=== PATIENT | female | born 1990 | race Caucasian/White ===

== ENCOUNTER 2017-04-19 05:20 | Emergency (ER) | payer MEDICAID ==
--- NOTE | 2017-04-19 05:25 | EDPHY ---
H & P HPI/ROS: HPI CHIEF COMPLAINT: Left ankle pain. HISTORY OF PRESENT ILLNESS: This patient very pleasant 27-year-old female, she is otherwise healthy but does have a history of diabetes, she presents emergency room with left ankle pain. She reports that she was in the kitchen last night rolled her left ankle. She now has tenderness to the left lateral malleolus. And some mild soft tissue swelling inferior to left lateral malleolus. She has good distal pulse. Good cap refill. Warm extremity. She denies any knee pain or upper thigh pain. She states that hurts when she bears weight on it. Past Medical History: Denies significant medical history except for diabetes Past Surgical History: No recent surgery Social History: Lives locally, denies daily use of drugs alcohol tobacco. Family History: Noncontributory ROS REVIEW OF SYSTEMS: A comprehensive 10 point review of systems is otherwise negative aside from elements mentioned in the history of present illness. Exam Constitutional appears well nontoxic triage nursing summary reviewed, vital signs reviewed, awake/alert. Eyes normal conjunctivae and sclera, EOMI, PERRLA. HENT normal inspection, atraumatic, moist mucus membranes, no epistaxis, neck supple/ no meningismus, no raccoon eyes. Respiratory clear to auscultation bilaterally, normal breath sounds, no respiratory distress, no wheezing. Cardiovascular rate normal, regular rhythm, no murmur, no edema, distal pulses normal. Gastrointestinal soft, non-tender, no rebound, no guarding, normal bowel sounds, no distension, no pulsatile mass. Genitourinary no CVA tenderness. Musculoskeletal no midline vertebral tenderness, full range of motion, no calf swelling, no tenderness of extremities, no meningismus, good pulses, neurovascularly intact. Left lower extremity: This is neurovascularly intact. Good distal pulse. Good cap refill. Tender palpation over the left lateral malleolus some swelling noted inferior left lateral malleolus. Compartments are soft. No calf tenderness or calf swelling. Good distal pulse. Good cap refill. Sensation intact. Skin pink, warm, & dry, no rash, skin atraumatic. Neurologic awake, alert and oriented x 3, AAOx3, moves all 4 extremities equally, motor intact, sensory intact, CN II-XII intact, normal cerebellar, normal vision, normal speech. Psychiatric normal mood/affect. Heme/Lymph/Immune no lymphadenopathy. Differential Diagnosis: Includes but is not limited to in a particular order acute left ankle sprain, tendinitis, ankle fracture, avulsion fracture, soft tissue injury, nerve injury, plantar fasciitis. Medical Decision Making: Plan for this patient ibuprofen 800 mg for pain control, x-ray left ankle. Re-evaluation: X-ray of the left ankle reviewed by myself: No evidence of acute fracture malalignment. Patient placed in a walking boot for comfort, crutches as needed for support. Ibuprofen for pain control. Recommend follow up with Podiatry or her primary care doctor. 0551: X-ray of the left ankle is been reviewed. Interpreted by myself. I do not appreciate any significant malalignment or evidence of fracture. Recommend crutches for weight-bearing, recommend walking boot for comfort. Additionally recommend ice and ibuprofen anti-inflammatory pain medicine. If she continues to have pain I do recommend she follows up with Podiatry or her primary care doctor she understands. Source: Patient - Medical/Surgical History Hx Asthma: No Hx Chronic Respiratory Disease: No Hx Diabetes: Yes Hx Cardiac Disease: No Hx Renal Disease: No Hx Cirrhosis: No Hx Alcoholism: No Hx HIV/AIDS: No Hx Splenectomy or Spleen Trauma: No Other PMH: IDDM - Social History Smoking Status: Former smoker Constitutional: Initial Vital Signs Temperature (C) 37.1 C 04/19/17 05:21 Heart Rate 89 04/19/17 05:21 Respiratory Rate 16 04/19/17 05:21 Blood Pressure 133/83 H 04/19/17 05:21 O2 Sat (%) 97 04/19/17 05:21 O2 Delivery Mode Room Air Allergies/Adverse Reactions: bacitracin Allergy (Verified 04/19/17 05:30) Home Medications: Medication Instructions Recorded Insulin Pump Syringe, 3 ml 06/14/15 MULTI [id number] 0.25 MG 06/14/15 RX: Ibuprofen [Motrin (*)] 800 mg PO Q6-8PRN #10 tab 04/19/17 Xanax 04/19/17 Medical Decision Making - Data Points Medications Given: Discontinued Medications Ibuprofen (Motrin) 800 mg PO EDNOW ONE Stop: 04/19/17 05:39 Last Admin: 04/19/17 05:43 Dose: 800 mg Departure - Departure Disposition: Home, Routine, Self-Care Clinical Impression: Ankle sprain Qualifiers: Encounter type: initial encounter Involved ligament of ankle: unspecified ligament Laterality: left Qualified Code(s): S93.402A - Sprain of unspecified ligament of left ankle, initial encounter Condition: Good Instructions: Ankle Sprain (ED) Additional Instructions: 1. I recommend that you ice her ankle. 2. Take anti-inflammatory pain medicine like Tylenol Motrin for pain control. 3. Follow up with her primary care doctor or retail sales associate. 4. Crutches to help support her weight. 5. Walking boot for comfort. Referrals: [facility] [Primary Care Provider] - As per Instructions Cristy Abraham DPM [Doctor of Podiatric Medicine] - As per Instructions Prescriptions: RX: Ibuprofen [Motrin (*)] 800 mg PO Q6-8PRN #10 tab
[2017-04-19 05:29] VITALS: RESP 16; TEMP 98.8
[2017-04-19] MEDS ORDERED: IBUPROFEN 800 MG TAB PO ONE (05:38)
[2017-04-19 06:17] VITALS: BP 124/76; PULSE 80; O2SAT 98
== END 2017-04-19 06:12 | disposition home or self-care (01) ==
DX: S93.402A Sprain of unspecified ligament of left ankle, initial encounter (principal); E11.9 Type 2 diabetes mellitus without complications; Z87.891 Personal history of nicotine dependence; Z79.4 Long term (current) use of insulin; X58.XXXA Exposure to other specified factors, initial encounter; Y92.000 Kitchen of unspecified non-institutional (private) residence as the place of occurrence of the external cause; Y99.8 Other external cause status; Y93.89 Activity, other specified
CPT/HCPCS: L4386

== ENCOUNTER → 2017-06-02 | Outpatient (CLI) | payer MEDICAID ==
[~2017-06-02] MED LIST: GADOBUTROL 10 ML VIAL IVP ONE
== END ==
LOC: FIMAGING 12:21
PROVIDERS: ATTEND Family Medicine
DX: E23.7 Disorder of pituitary gland, unspecified (principal)
CPT/HCPCS: A9585

== ENCOUNTER → 2017-07-16 | Outpatient (CLI) | payer MEDICAID | LOC: FIMAGING 14:18 | PROVIDERS: ATTEND Family Medicine | DX: N63.20 Unspecified lump in the left breast, unspecified quadrant (principal); R92.8 Other abnormal and inconclusive findings on diagnostic imaging of breast ==

== ENCOUNTER → 2017-07-20 | Outpatient (CLI) | payer MEDICAID | LOC: FIMAGING 08:56 | PROVIDERS: ATTEND Internal Medicine Endocrinology, Diabetes & Metabolism | DX: R94.6 Abnormal results of thyroid function studies (principal); Z86.39 Personal history of other endocrine, nutritional and metabolic disease | CPT/HCPCS: 78012; A9516 ==

== ENCOUNTER 2017-09-22 12:27 | Emergency (ER) | payer MEDICAID ==
--- NOTE | 2017-09-22 14:17 | EDPHY ---
H & P Stated Complaint: Elevated HR and dizziness on and off for several weeks. Time Seen by Provider: 09/22/17 13:48 HPI/ROS: CHIEF COMPLAINT: Palpitations HISTORY OF PRESENT ILLNESS: Patient is a 27-year-old female with a history of diabetes with an insulin pump also anxiety and pituitary cyst and thyroiditis. She reports intermittent tachycardia up to 95. She states that this is happened for several years but seems to happen more frequently in the last few weeks. She states that her typical heart rate is in the 70s. She states that it occasionally happens with exertion but often times even while resting or lying still. She has had echoes in the past which have been normal. She has not worn a Holter monitor. She denies chest pain. She denies shortness of breath. She denies nausea vomiting or diaphoresis. No lightheadedness. REVIEW OF SYSTEMS: Constitutional: denies: chills, fever, recent illness, recent injury EENTM: denies: blurred vision, double vision, nose congestion Respiratory: denies: cough, shortness of breath Cardiac: See HPI denies: chest pain, irregular heart rate, lightheadedness, Gastrointestinal/Abdominal: denies: abdominal pain, diarrhea, nausea, vomiting, blood streaked stools Genitourinary: denies: dysuria, frequency, hematuria, pain Musculoskeletal: denies: joint pain, muscle pain Skin: denies: lesions, rash, jaundice, bruising Neurological: denies: headache, numbness, paresthesia, tingling, dizziness, weakness Hematologic/Lymphatic: denies: blood clots, easy bleeding, easy bruising Immunologic/allergic: denies: HIV/AIDS, transplant EXAM: GENERAL: Well-appearing, well-nourished and in no acute distress. HEAD: Atraumatic, normocephalic. EYES: Pupils equal round and reactive to light, extraocular movements intact, sclera anicteric, conjunctiva are normal. ENT: TMs normal, nares patent, oropharynx clear without exudates. Moist mucous membranes. NECK: Normal range of motion, supple without lymphadenopathy or JVD. LUNGS: Breath sounds clear to auscultation bilaterally and equal. No wheezes rales or rhonchi. HEART: Regular rate and rhythm without murmurs, rubs or gallops. ABDOMEN: Soft, nontender, normoactive bowel sounds. No guarding, no rebound. No masses appreciated. BACK: No CVA tenderness, no spinal tenderness, step-offs or deformities EXTREMITIES: Normal range of motion, no pitting or edema. No clubbing or cyanosis. NEUROLOGICAL: Cranial nerves II through XII grossly intact. Normal speech, normal gait. 5/5 strength, normal movement in all extremities, normal sensation PSYCH: Normal mood, normal affect. SKIN: Warm, dry, normal turgor, no visible rashes or lesions. Source: Patient Exam Limitations: No limitations - Personal History LMP (Females 10-55): 8-14 Days Ago Current Tetanus Diphtheria and Acellular Pertussis (TDAP): Unsure - Medical/Surgical History Hx Asthma: No Hx Chronic Respiratory Disease: No Hx Diabetes: Yes Hx Cardiac Disease: No Hx Renal Disease: No Hx Cirrhosis: No Hx Alcoholism: No Hx HIV/AIDS: No Hx Splenectomy or Spleen Trauma: No Other PMH: IDDM - Family History Significant Family History: No pertinent family hx - Social History Smoking Status: Former smoker Alcohol Use: None Constitutional: Initial Vital Signs Temperature (C) 36.3 C 09/22/17 12:27 Heart Rate 97 09/22/17 12:27 Respiratory Rate 20 09/22/17 12:27 Blood Pressure 143/103 H 09/22/17 12:27 O2 Sat (%) 99 09/22/17 12:27 O2 Delivery Mode Room Air Allergies/Adverse Reactions: bacitracin Allergy (Verified 04/19/17 05:30) Home Medications: Medication Instructions Recorded Insulin Pump Syringe, 3 ml 06/14/15 MULTI [id number] 0.25 MG 06/14/15 Ibuprofen [Motrin (*)] 800 mg PO Q6-8PRN #10 tab 04/19/17 Xanax 04/19/17 Medical Decision Making - Diagnostics EKG Interpretation: An EKG obtained and was read and documented in trace view. Please see trace view for full reading and report. Sinus rhythm, no acute ischemic changes ED Course/Re-evaluation: When I entered the room the patient was tearful and she states this is because her IV is hurting. She asked to have it removed. We discussed her symptoms. She states that her heart rate has never gone above 100 other then when she is exercising. She was actually calling her primary today to make a follow-up appointment because she noticed her heart rate was 95 and the triage nurse recommended she come to the ER. She states that she did not think it was really necessary to come here but they were somewhat insistent. They told her she could come here to get an ultrasound. We discussed options. She is currently asymptomatic. I told her was not overly concerned about a heart rate in the 90s but would recommend checking her glucose and electrolytes and thyroid again. She initially thought she might leave. She agrees to stay. Patient's lab work is reassuring. I recommended that she follow up for Holter monitoring with her primary. She agrees with this. She is currently asymptomatic. Do not think that she would benefit from an ultrasound today. Differential Diagnosis: Partial list of the Differential diagnosis considered include but were not limited to; arrhythmia, palpitations, anxiety and although unlikely based on the history and physical exam, I also considered acute coronary disease, infection. I discussed these differential diagnoses and the plan with the patient as well as the usual and expected course. The patient understands that the diagnosis is provisional and that in medicine we are not always correct and that further workup is often warranted. Usual and customary warnings were given. All of the patient's questions were answered. The patient was instructed to return to the emergency department should the symptoms at all worsen or return, otherwise to followup with the physician as we discussed. - Data Points Laboratory Results: Laboratory Results 09/22/17 14:00 09/22/17 14:00 Point of Care Test Results: Chemistry 09/22/17 14:04 POC Troponin I 0.00 ng/mL ng/mL (0.00-0.08) Departure - Departure Disposition: Home, Routine, Self-Care Clinical Impression: Palpitations, Anxiety about health Condition: Fair Instructions: Heart Palpitations (ED) Referrals: Mary Mills MD [Primary Care Provider] - 1-2 days without fail
[2017-09-22 14:19] LABS: PLATELET COUNT 404 10^3/uL (150-400)
--- NOTE | 2017-09-22 14:36 | CPEKG ---
Heart Rate: 78 RR Interval: 769 P-R Interval: 176 QRSD Interval: 70 QT Interval: 376 QTC Interval: 429 P [place]: 55 QRS [place]: 66 T Wave [place]: 54 EKG Severity - NORMAL ECG - EKG Impression: SINUS RHYTHM Electronically Signed By: Pio Naranjo 22-Sep-2017 14:37:02
[2017-09-22 15:11] VITALS: BP 130/87
== END 2017-09-22 15:11 | disposition home or self-care (01) ==
DX: R00.2 Palpitations (principal); F41.9 Anxiety disorder, unspecified; E11.9 Type 2 diabetes mellitus without complications; Z79.4 Long term (current) use of insulin; Z87.891 Personal history of nicotine dependence
CPT/HCPCS: 84484-PO

== ENCOUNTER → 2017-11-03 | Outpatient (CLI) | payer MEDICAID | LOC: FIMAGING 10:42 | PROVIDERS: ATTEND Obstetrics & Gynecology | DX: N63.10 Unspecified lump in the right breast, unspecified quadrant (principal) ==

== ENCOUNTER → 2018-06-30 | Outpatient (CLI) | payer MEDICAID | LOC: FIMAGING 13:41 | DX: E23.7 Disorder of pituitary gland, unspecified (principal) | CPT/HCPCS: 82565-PO; A9585 ==